=== PATIENT | female | born 1965 | race Caucasian/White ===

== ENCOUNTER 2021-03-18 11:36 | Emergency (ER) | payer OTHER ==
[~2021-03-18] VITALS: Ht 162.6 cm; Wt 81.6 kg
[2021-03-18 11:44] VITALS: BP_SYST 146
--- NOTE | 2021-03-18 12:08 | NUR ---
Patient triaged and placed in waiting room. VSS and patient appears in no acute distress at this time. Accompanied by family member , awaiting available bed, and MD notified of need for MSE.
== END 2021-03-18 12:43 | disposition left against medical advice (07) ==
LOC: SED 11:36
DX: S61.212A Laceration without foreign body of right middle finger without damage to nail, initial encounter (principal); W45.8XXA Other foreign body or object entering through skin, initial encounter; Y93.89 Activity, other specified; Y92.89 Other specified places as the place of occurrence of the external cause; Y99.8 Other external cause status